=== PATIENT | female | born 1955 | race Caucasian/White ===

== ENCOUNTER → 2018-09-07 | Outpatient (CLI) | payer OTHER ==
[~2018-09-07] MED LIST: ALPH300C PO; ATOR10TA9 PO; BUDE3CAP15 PO; BUDE9TAB PO; CALTRATE PO; CARV6.252 PO; CHOL100015 PO; CHOL200024 PO; DONE10TA56 PO; DOXY100T10 PO; ESTR1PAT10 TP; GABA300C10 PO; HYDR200T72 PO; INSULIN PUMP SQ; IRON PO; LACT1TAB8 PO; LEVO137T3 PO; LEVO25TA45 PO; LOSA100T2 PO; MAGNESIUM WITH ZINC PO; MEMA10TA PO; OXYC-302 PO; RIVA10TA2 PO; TERA2CAP3 PO; VITA1TAB19 PO; [UNRECOGNIZED DRUG - OTHER] PO
== END | disposition home or self-care (01) ==
LOC: CFH 08:54
PROVIDERS: ATTEND Internal Medicine Cardiovascular Disease
DX: I08.3 Combined rheumatic disorders of mitral, aortic and tricuspid valves (principal); I10 Essential (primary) hypertension; E11.9 Type 2 diabetes mellitus without complications; E78.5 Hyperlipidemia, unspecified; Z87.891 Personal history of nicotine dependence
CPT/HCPCS: 93306

== ENCOUNTER 2021-01-04 10:17 | Outpatient (CLI) | payer MEDICARE ==
[~2021-01-04 10:17] MED LIST changes: -DOXY100T10 PO; +DOXY100T23 PO; -OXYC-302 PO; +OXYC1TAB12 PO
== END 2021-01-04 23:59 | disposition home or self-care (01) ==
LOC: CVU 10:17
PROVIDERS: ATTEND Internal Medicine Cardiovascular Disease
DX: I08.8 Other rheumatic multiple valve diseases (principal); I42.9 Cardiomyopathy, unspecified
CPT/HCPCS: 93306; 93356; C8922